=== PATIENT | male | born 1995 | race Caucasian/White ===

== ENCOUNTER → 2020-11-29 08:00 | Outpatient (CLI) | payer OTHER, SELFPAY ==
[2020-11-30 08:47] LABS: Basophils % 0.4 % (0.1-2.0); Eosinophils # 0.1 K/mm3 (0.0-0.4); Hematocrit 53.6 % (42.0-52.0); Lymphocytes # 2.1 K/mm3 (0.7-4.5); Lymphocytes % 33.7 % (10-50); Mean Corpuscular HGB Conc 31.6 g/dL (31.8-35.4); Mean Corpuscular Hemoglobin 28.2 pg (27.0-31.2); Mean Corpuscular Volume 89.2 fl (80-94); Mean Platelet Volume 9.3 fl (7.4-10.4); Monocytes # 0.3 K/mm3 (0.1-1.0); Neutrophils # 3.8 K/mm3 (1.8-7.8); Neutrophils % 59.9 % (37.0-80.0); Platelet Count 255 K/mm3 (142-424); Red Blood Count 6.01 M/mm3 (4.60-6.20); Red Cell Distribution Width 13.1 % (11.5-17.5); White Blood Count 6.3 K/mm3 (4.8-10.8)
[2020-11-30 08:50] LABS: Chloride 106 mmol/L (98-107); Potassium 4.3 mmoL/L (3.5-5.1); Sodium 143 mmol/L (136-145)
[2020-11-30 08:52] LABS: Alanine Aminotransferase 87 U/L (12-78); Aspartate Amino Transferase 50 U/L (17-59); Blood Urea Nitrogen 11 mg/dl (9-20); Estimated Glomerular Filt Rate 135 ml/min (>60); GFR (African American) 164 ML/MIN (>60)
[2020-11-30 08:53] LABS: Albumin Level 4.8 g/dl (3.5-5.0); Albumin/Globulin Ratio 1.5 (1.1-1.8); Alkaline Phosphatase 81 U/L (38-126); Anion Gap 14.3 mEq/L (5-15); Bilirubin,Total 0.8 mg/dl (0.2-1.3); Calcium 9.6 mg/dl (8.4-10.2); Carbon Dioxide 27 mmol/L (22.0-30.0); Cholesterol 106 mg/dl (140-200); Globulin 3.3 g/dL (1.3-3.2); Glucose 79 mg/dl (74-100); HDL Cholesterol 20 mg/dl (40-60); Total Protein,Serum 8.1 g/dl (6.3-8.2); Triglycerides 279 mg/dl (30-150); VLDL Cholesterol 56 mg/dL (0-40)
[2020-11-30 08:54] LABS: Chol/HDL Ratio 5.3 (1-3.5)
[2020-11-30 09:04] LABS: Direct LDL Cholesterol 48.99 mg/dL (100-129)
[2020-11-30 09:10] LABS: Hemoglobin A1C 5.5 % (4.0-6.0)
[2020-11-30 09:24] LABS: Thyroid Stimulating Hormone 1.83 uIU/mL (0.465-4.68)
== END ==
PROVIDERS: Visit Provider Family Medicine
DX: Z00.00 Encounter for general adult medical examination without abnormal findings (principal); Z76.89 Persons encountering health services in other specified circumstances
CPT/HCPCS: 80053; 80061; 83036; 84443; 85025

== ENCOUNTER 2021-02-17 16:12 | Inpatient (IN) | payer OTHER, SELFPAY ==
[2021-02-17] VITALS (16 sets, daily range): BP systolic 116–151; BP diastolic 54–94; PULSE 67–85; RESP 16–19; TEMP 36.8–37.4; O2SAT 93–100; BMI 31.4; BMI 30.9
--- NOTE | 2021-02-17 16:39 | CT_ITS ---
PROCEDURE INFORMATION: Exam: CT Abdomen And Pelvis With Contrast Exam date and time: 02/17/2021 4:39 PM Age: 25 years old Clinical indication: Abdominal pain; Localized; Right lower quadrant (rlq); Additional info: Right sided abd pain TECHNIQUE: Imaging protocol: Computed tomography of the abdomen and pelvis with contrast. Radiation optimization: All CT scans at this facility use at least one of these dose optimization techniques: automated exposure control; mA and/or kV adjustment per patient size (includes targeted exams where dose is matched to clinical indication); or iterative reconstruction. Contrast material: ISOVUE; Contrast volume: 75 ml; Contrast route: IV; COMPARISON: No relevant prior studies available. FINDINGS: Lungs: No acute findings in the visualized lower lungs. No consolidation. Liver: Prominent low-attenuation fatty change in the liver. Mild hepatomegaly. No discrete mass. There is mild periportal sparing noted in the right lobe. Gallbladder and bile ducts: The gallbladder is unremarkable. No calcified stones or biliary dilatation. Pancreas: The pancreas is normal. Spleen: Splenomegaly approximate 16.3 cm length coronal image 44. Calcified splenic granuloma. Mild perisplenic varices. Adrenal glands: The adrenal glands are normal. Kidneys and ureters: Right lower pole 1.4 cm renal cortical cystic lesion, HU density 8, with benign Bosniak 1 appearance. No suspicious mass. No hydronephrosis, hydroureter, or obstructing calcified stones. Stomach and bowel: There is no evidence of intestinal perforation or obstruction. The stomach is normal. Appendix: Findings of acute appendicitis. The appendix is distended to 1.3 cm diameter containing fluid and gas bubbles. There is slight hyperenhancement of the wall of the appendix, and there is periappendiceal soft tissue edema. Note that the appendix extends cephalad from the cecum, with tip of the appendix near the inferior tip of the right lobe of liver. See coronal series 1001, images 41-50. There is trace fluid abutting the tip of the appendix, but no organized periappendiceal abscess collection or extraluminal gas bubbles. Intraperitoneal space: There is no free intraperitoneal air. Vasculature: There is no aortic aneurysm. No portal venous gas. Lymph nodes: Minimally prominent portacaval nodes up to 2.3 x 1.1 cm series 4, image 47. Urinary bladder: Bladder is within normal limits for the degree of distension, not well filled. No calcified stones. Reproductive: Multiple prostate calcifications. Minimal prostate enlargement 4.9 x 4.1 by 4 cm. Seminal vesicles are unremarkable. Bones/joints: There is no evidence of acute fracture. Mild spinal degenerative changes. Soft tissues: There are no soft tissue masses or fluid collections. IMPRESSION: 1. Findings of acute appendicitis as detailed above. There is periappendiceal edema and trace fluid, but no organized abscess collection or extraluminal gas bubbles. 2. Fatty liver, hepatomegaly. 3. Splenomegaly, a few perisplenic varices. 4. Additional nonemergency and chronic findings as above including benign-appearing 1.4 cm Bosniak 1 cyst in the right kidney, no further imaging indicated. COMMENTS: Consistent with the [employer]'s Incidental Findings Committee white paper (J Am Trace Radiol 2018): Any incidental renal lesion less than 1 cm or classified as too small to characterize, or any incidental cystic renal lesion characterized as simple-appearing, is likely benign. No follow-up imaging is recommended for these lesions per consensus recommendations based on imaging criteria. Electronically sign
[2021-02-17 16:48] LABS: Microscopic, Urine URINE MICROSCOPIC (MICROSCOPIC)
[2021-02-17 16:58] LABS: Appearance,Urine SL CLOUDY (Clear); Bilirubin,Urine Negative (Negative); Blood, Urine Negative (Negative); Chloride 104 mmol/L (98-107); Color,Urine YELLOW (Yellow); Glucose,Urine (UA) Negative (Negative); Ketones,Urine Negative (Negative); Leukocyte Esterase,Urine Negative (Negative); Nitrate,Urine Negative (Negative); Protein,Urine 1+ (Negative); Sodium 139 mmol/L (136-145); Urobilinogen,Urine 0.2 EU/dl (0.2)
[2021-02-17 16:59] LABS: Potassium 3.9 mmoL/L (3.5-5.1)
[2021-02-17 17:01] LABS: Alanine Aminotransferase 75 U/L (12-78); Alkaline Phosphatase 69 U/L (38-126); Amylase 66 U/L (30-110); Anion Gap 15.9 mEq/L (5-15); Aspartate Amino Transferase 49 U/L (17-59); Basophils % 0.2 % (0.1-2.0); Bilirubin,Total 0.7 mg/dl (0.2-1.3); Blood Urea Nitrogen 11 mg/dl (9-20); Carbon Dioxide 23 mmol/L (22.0-30.0); Creatinine Clearance Estimated 291 mL/min (50-200); Estimated Glomerular Filt Rate 162 ml/min (>60); GFR (African American) 196 ML/MIN (>60); Hematocrit 47.3 % (42.0-52.0); Hemoglobin 15.9 g/dL (14.1-18.0); Lymphocytes # 1.1 K/mm3 (0.7-4.5); Lymphocytes % 7.4 % (10-50); Mean Corpuscular HGB Conc 33.7 g/dL (31.8-35.4); Mean Corpuscular Hemoglobin 29.2 pg (27.0-31.2); Mean Corpuscular Volume 86.8 fl (80-94); Mean Platelet Volume 7.7 fl (7.4-10.4); Monocytes # 0.5 K/mm3 (0.1-1.0); Neutrophils # 13.1 K/mm3 (1.8-7.8); Neutrophils % 89.3 % (37.0-80.0); Platelet Count 269 K/mm3 (142-424); Red Blood Count 5.44 M/mm3 (4.60-6.20); Red Cell Distribution Width 13.6 % (11.5-17.5); White Blood Count 14.7 K/mm3 (4.8-10.8)
[2021-02-17 17:02] LABS: Albumin Level 4.6 g/dl (3.5-5.0); Albumin/Globulin Ratio 1.4 (1.1-1.8); Calcium 9.1 mg/dl (8.4-10.2); Globulin 3.3 g/dL (1.3-3.2); Glucose 162 mg/dl (74-100); Lipase 38 U/L (23-300); Total Protein,Serum 7.9 g/dl (6.3-8.2)
[2021-02-17 17:12] LABS: MANUAL DIFFERENTIAL MANUAL DIFFERENTIAL (MANUAL DIFF)
[2021-02-17 17:17] LABS: Bacteria,Urine Trace /lpf; RBC,Urine Occasional #/hpf (0-3); Squamous Epithelial Cell,Urine Occasional #/hpf (0-5)
--- NOTE | 2021-02-17 17:39 | HMH.EDGENADL ---
ED Disposition Clinical Impression: Acute appendicitis Qualifiers: Acute appendicitis type: with localized peritonitis Appendicitis gangrene presence: without gangrene Appendicitis perforation presence: without perforation Appendicitis abscess presence: without abscess Qualified Code(s): K35.30 - Acute appendicitis with localized peritonitis, without perforation or gangrene Disposition: Still a Patient Condition on Discharge: Fair Referrals: Fred Snider MD [Primary Care Provider] - - Critical Care Critical Care Time: No Attestation: On 02/17/21, the high probability of a clinically significant, sudden or life threatening deterioration of the following system(s) required my full and direct attention, intervention and personal management. The time I documented below is in addition to time spent performing reported procedures but includes the following listed in this critical care notation. Medical Decision Making - Sloan Inquiry Pt receiving controlled substance: No Vital Signs: 02/17/21 16:14 Temperature 98.2 F Temperature Source Oral Pulse Rate [Right] 74 Respiratory Rate 16 Blood Pressure [Right Arm] 126/94 H Blood Pressure Mean [Right Arm] 104 Blood Pressure Source [Right Arm] Automatic Cuff Blood Pressure Position [Right Arm] Sitting 02 Sat by Pulse Oximetry 100 Oxygen Delivery Method Room Air - Lab Data Lab Results 02/17/21 16:30: Urine Color Yellow, Urine Appearance Sl cloudy, Urine pH 7.0, Ur Specific [place] 1.020, Urine Protein 1+, Urine Glucose (UA) Negative, Urine Ketones Negative, Urine Blood Negative, Urine Nitrate Negative, Urine Bilirubin Negative, Urine Urobilinogen 0.2, Ur Leukocyte Esterase Negative, Urine RBC Occasional, Urine WBC 3-5, Ur Squamous Epith Cells Occasional, Urine Bacteria Trace 02/17/21 16:30: WBC 14.7 H, RBC 5.44, Hgb 15.9, Hct 47.3, MCV 86.8, MCH 29.2, MCHC 33.7, RDW 13.6, Plt Count 269, MPV 7.7, Neut % (Auto) 89.3 H, Lymph % (Auto) 7.4 L, [place] % (Auto) 3.0, Eos % (Auto) 0.0 L, Baso % (Auto) 0.2, Neut # (Auto) 13.1 H, Lymph # (Auto) 1.1, [place] # (Auto) 0.5, Eos # (Auto) 0.0, Baso # (Auto) 0.0 02/17/21 16:30: Sodium 139, Potassium 3.9, Chloride 104, Carbon Dioxide 23, Anion Gap 15.9 H, BUN 11, Creatinine 0.60 L, Estimated Creat Clear 291, Estimated GFR 162, Est GFR ( Amer) 196, Glucose 162 H, Calcium 9.1, Total Bilirubin 0.7, AST 49, ALT 75, Alkaline Phosphatase 69, Total Protein 7.9, Albumin 4.6, Globulin 3.3 H, Albumin/Globulin Ratio 1.4, Amylase 66, Lipase 38 Result diagrams: 02/17/21 16:30 02/17/21 16:30 Orders (Tests/Meds): ED MEDICATIONS Generic Name Dose Route Start Last Admin Trade Name Freq PRN Reason Stop Dose Admin Sodium Chloride 1,000 mls @ 999 mls/hr 02/17/21 16:45 02/17/21 16:42 Sod Chlor 0.9% 1000ml Bag IV 02/17/21 17:45 999 mls/hr .Q1H1M ANDREW Administration Discontinued Medications Generic Name Dose Route Start Last Admin Trade Name Freq PRN Reason Stop Dose Admin Iopamidol 75 ml 02/17/21 17:07 02/17/21 17:08 Iopamidol-370 (76%);100ml Bottle IV 02/17/21 17:08 75 ml ONCE ONE Administration Sodium Chloride 10 ml 02/17/21 17:07 02/17/21 17:08 Sodium Chloride 0.9% 10ml Syr (Rad Only) IV 02/17/21 17:08 10 ml ONCE ONE Administration ORDERS Category Date Time Status Complete Blood Count Auto Diff Stat Lab 02/17/21 16:30 Results - CT Data CT Scan: Abdomen, Pelvis Time Received: 17:[address] Reviewed: Yes: I discussed the CT results w/the radiologist, I have viewed the radiologist's interpretation Findings Narrative: ADDENDUM Addendum created by Dinorah Quigley MD on 02/17/2021 5:39:33 PM EDT: THIS REPORT CONTAINS FINDINGS THAT MAY BE CRITICAL TO PATIENT CARE. The findings were verbally communicated via telephone conference with LUIS KOCH at 5:39 PM EDT on 02/17/2021. The findings were acknowledged and understood. Initial report created on 02/17/2021 5:33:10 PM EDT: PROCEDU
--- NOTE | 2021-02-17 17:41 | PC.NURSE ---
Pt removing clothing at this time. Advised him he could call his father to come back
--- NOTE | 2021-02-17 17:49 | PC.NURSE ---
Dr Resendiz speaking to surgeon rehabilitation attendant
--- NOTE | 2021-02-17 17:49 | PC.NURSE ---
speaking with surgeon
--- NOTE | 2021-02-17 17:50 | PC.NURSE ---
Notified house that Dr. Summers wanted to go ahead and call the surgery team in.
--- NOTE | 2021-02-17 18:11 | PC.NURSE ---
Dr. Summers at bedside
[2021-02-17 18:13] LABS: Lymphocytes % 8 % (10-50); Microcytosis 1+; Monocytes % 3 % (2-9); Neutrophils % 88 % (42-76); Platelet Estimate Normal; Total Cells Counted 100
[2021-02-17 18:17] LABS: Coronavirus 19, PCR Not Detected (NotDetected); Influenza A, PCR Not Detected (NotDetected); Influenza B, PCR Not Detected (NotDetected)
--- NOTE | 2021-02-17 18:28 | PC.NURSE ---
Jorge at bedside
--- NOTE | 2021-02-17 18:38 | PC.NURSE ---
175 call received from ED for surgery team, surgery team paged 175 roger walters crna notified [phone] lara pina rn notified [phone] anderson lorenzana notified
--- NOTE | 2021-02-17 18:48 | PC.NURSE ---
Notified admissions pt has gone to surgery
--- NOTE | 2021-02-17 18:49 | PC.NURSE ---
Pre-op checklist completed, consent completed and signed by pt's father. Pt had received pain medication. Explained procedure to patient and father. Patient and father both agreeable.
--- NOTE | 2021-02-17 19:50 | P.PN_ITS ---
[facility] Anesthesia Checklist - Patient Identification Patient Identification: Arm Band - Structural Data Admitted From: Emergency Dept Planned Operative Procedure/s: Laparoscopic Appendectomy Consent for Planned Operative Procedure(s) Verified: Yes Verified Documents: Surgical Consent, History and Physical - NPO Status Verified Time NPO: 14:00 - Additional verifications Anesthesia Reactions: No - Airway Assessment C-Spine Mobility Assessed: Yes (mp3) TMJ Mobility Assessed: Yes Dentition: Good Dentition - Neurological Assessment Level of Consciousness: Awake, Alert - Anesthesia Plan Anesthesia Risk discussed: Yes Anesthesia Plan: Verified ASA Class: II (e) Anesthesia Type: General [facility] History I have reviewed the patient's past medical history: Yes Medical History: Reports:: Anxiety *Have you ever received a pneumonia vaccine?: No *Have you received a flu vaccine this season?: Yes Anesthesia experience/problems:: nac Laterality Cases: Bilateral: Tonsillectomy Other Surgeries: Yes: Other Amputation: No Fractures: No - *Social History Smoking Status: Never smoker Alcohol Intake: never Substance Use Type: denies use *Occupational Status:: employed *Travel in the last 8 weeks: None Family Hx:: No significant family history
--- NOTE | 2021-02-17 20:29 | HMH.GSHP ---
HPI HPI: This is a 25-year-old gentleman who presented to emergency department with increasing abdominal pain. Evaluation revealed mild leukocytosis and radiographic evidence of appendicitis. The surgical service was consulted. The HPI from emergency department evaluation forwarded below. Forwarded from emergency department evaluation: General Adult HPI - General Chief complaint: Abdominal Pain Stated complaint: Right side/stomach,back pain Time Seen by Provider: 02/17/21 17:39 Mode of Arrival: Ambulatory Limitations: No Limitations Description of Symptoms (Recalled from ER Triage Doc. by RN): pt c/o right sided abd pain that goes around into his back. Advises the pain started this morning and was stabbing in nature. Denies any N/V/D. Advises he did vomit earlier but thinks its from the pain. Also denies any problems with urination - History of Present Illness HPI narrative: Generalized abdominal pain that began last night. Much more severe today and seems to be localizing to the right side around to his right flank. No fever. 1 episode of vomiting. No urinary symptoms. No prior similar pain. No previous abdominal surgeries. Pain was 02/13 earlier today, now 10/14. [facility] History Medical History: Reports:: Anxiety *Have you ever received a pneumonia vaccine?: No *Have you received a flu vaccine this season?: Yes Anesthesia experience/problems:: nac Laterality Cases: Bilateral: Tonsillectomy Other Surgeries: Yes: Other Amputation: No Fractures: No - *Social History Smoking Status: Never smoker Alcohol Intake: never Substance Use Type: denies use *Occupational Status:: employed *Travel in the last 8 weeks: None - Psychiatric History Pschychiatric History:: Reports:: Anxiety Family Hx:: No significant family history Review of Systems - Constitutional Denies chills - Eyes Denies change in vision - ENT Denies difficulty swallowing - *Cardiovascular Denies chest pain - *Respiratory Denies cough - *Gastrointestinal Reports abdominal pain - *Genitourinary Denies blood in urine - *Musculoskeletal Denies deformity - Integumentary/Breasts Denies new lesions - *Neurologic Denies abnormal movements, Denies abnormal speech, Denies confusion - Psychiatric Denies behavioral changes, Denies confusion - Endocrine Denies cold intolerance - Hematologic/Lymphatic Denies easy bleeding - Allergic/Immunologic Denies throat swelling Meds Home Medications Medication Instructions Recorded Confirmed Type Sertraline HCl [Zoloft] 100 mg PO DAILY 02/17/21 02/17/21 Rx Allergies Allergy/AdvReac Type Severity Reaction Status Date / Time clarithromycin [From Biaxin] AdvReac Verified 02/17/21 16:41 Exam Vital signs and Labs for Last 24 Hours: Temp Pulse Resp BP Pulse Ox 98.2 F 70 16 121/73 100 02/17/21 18:47 02/17/21 18:47 02/17/21 18:47 02/17/21 18:47 02/17/21 16:38 Laboratory Results - last 24 hr 02/17/21 16:30: Urine Color Yellow, Urine Appearance Sl cloudy, Urine pH 7.0, Ur Specific [place] 1.020, Urine Protein 1+, Urine Glucose (UA) Negative, Urine Ketones Negative, Urine Blood Negative, Urine Nitrate Negative, Urine Bilirubin Negative, Urine Urobilinogen 0.2, Ur Leukocyte Esterase Negative, Urine RBC Occasional, Urine WBC 3-5, Ur Squamous Epith Cells Occasional, Urine Bacteria Trace 02/17/21 16:30: WBC 14.7 H, RBC 5.44, Hgb 15.9, Hct 47.3, MCV 86.8, MCH 29.2, MCHC 33.7, RDW 13.6, Plt Count 269, MPV 7.7, Neut % (Auto) 89.3 H, Lymph % (Auto) 7.4 L, [place] % (Auto) 3.0, Eos % (Auto) 0.0 L, Baso % (Auto) 0.2, Neut # (Auto) 13.1 H, Lymph # (Auto) 1.1, [place] # (Auto) 0.5, Eos # (Auto) 0.0, Baso # (Auto) 0.0, Total Counted 100, Neutrophils % (Manual) 88 H, Lymphocytes % (Manual) 8 L, Monocytes % (Manual) 3, Basophils % (Manual) 1.0, Platelet Estimate Normal, Microcytosis 1+ 02/17/21 16:30: Sodium 139, Potassium 3.9, Chloride 104, Carbon Dioxide 23, Anion Gap 15.9 H, BUN 11
--- NOTE | 2021-02-17 20:33 | P.OP_ITS ---
Date of procedure: 02/17/21 Pre-op Diagnosis:: Appendicitis Post-op Diagnosis:: Suppurative appendicitis Procedure performed:: Laparoscopic appendectomy Surgeon:: Eric Summers MD ADVERTISING COORDINATOR:: Ramu Carbajal Anesthesia: LYNN Estimated blood loss (mL): 15 Operative findings:: Severe inflammatory changes throughout appendix with suppurative changes and early necrosis of mid/distal appendix Operative note:: After informed consent was obtained the patient was taken to the operating room and placed in the supine position. General anesthesia was induced and his abdomen was prepped and draped in a sterile fashion. After infiltration local anesthetic a supraumbilical incision was made. A Veress needle was placed in position. The abdomen was insufflated. A 12 mm optical trocar was placed in position. Under direct visualization a 5 mm trocar was placed in the suprapubic position and an additional 5 mm trocar was placed in the left lower quadrant. The appendix was essentially retrocecal along the right gutter and very difficult to visualize. Careful retraction of the small bowel and colon did eventually lead to identification of the appendix and it was carefully elevated as adhesions were taken down with a combination of harmonic ciara and blunt dissection. As the appendix was elevated it was found to be severely inflamed with suppurative changes and patchy necrosis along the mid/distal region. The mesoappendix was taken down with harmonic ciara and an Endopath 45 stapling device was then used to transect the appendix at its base. The appendix was placed in a retrieval bag and removed through the supraumbilical trocar site. The right abdomen was thoroughly irrigated. Significant cloudy fluid but no definitive evidence of abscess cavity was noted. Fascia at the supraumbilical trocar site was reapproximated with 0 Ethibond. Pneumoperitoneum was released as the remaining trocars were removed. All wounds were irrigated and skin was closed with 4-0 Monocryl in a mattress fashion to facilitate hemostasis. Dressings were applied and the patient was transferred to recovery in stable condition after extubation. Condition: stable Disposition: PACU Specimens:: Appendix Complications:: No immediate
--- NOTE | 2021-02-17 20:35 | HMH.ANESI ---
[facility] Anesthesia Record Part I Intake, IV Amount: 1,000 Estimated blood loss (mL): 10 Urine output (mL): 150 Blood Pressure: 139/74 SaO2: 95 Pulse Rate: 67 Respiratory Rate: 16 Temperature: 99.3 F Patient is:: Drowsy, Stable Stable to PACU at:: 20:30
--- NOTE | 2021-02-17 21:07 | SUR.PHASEI ---
2100 attempted to call report to eleno UREÑA, she states she will call me back in 5 minutes
--- NOTE | 2021-02-17 21:22 | PC.NURSE ---
pt arrived to floor at 2119
[2021-02-17 22:47] LABS: Microscopic,Cath URINE MICROSCOPIC (MICROSCOPIC)
[2021-02-17 23:41] LABS: Appearance,Urine/Cath SL CLOUDY (Clear); Bilirubin,Cath Negative (Negative); Blood, Urine/Cath Negative (Negative); Color,Urine/Cath YELLOW (Yellow); Glucose,Urine/Cath (UA) Negative (Negative); Ketones,Urine/Cath Negative (Negative); Leukocyte Esterase,Cath Negative (Negative); Nitrate,Cath Negative (Negative); PH,Urine/Cath 6.5 (5.0-8.5); Protein,Urine/Cath Negative (Negative); Urobilinogen,Cath 0.2 EU/dl (0.2)
[2021-02-18] VITALS (7 sets, daily range): BP systolic 103–121; BP diastolic 52–65; PULSE 63–86; RESP 16–22; TEMP 36.4–37.2; O2SAT 93–98
[2021-02-18 00:06] LABS: WBC,Urine/Cath Occasional #/hpf (0-3)
--- NOTE | 2021-02-18 06:16 | PC.NURSE ---
Patient is A&O x4. Patient has had no complaints voiced to this RN. VSS, call light within reach, will continue to monitor.
--- NOTE | 2021-02-18 06:50 | HMH.GSPN ---
Subjective Patient reports: feels better Progress Note: A&P (1) Suppurative appendicitis Status: Acute Assessment and plan: Overall, doing well status post laparoscopic appendectomy. Follow-up morning labs Continue to slowly advance diet Likely discharge home later today Exam Vital signs and Labs for Last 24 Hours: Temp Pulse Resp BP Pulse Ox 98.1 F 82 18 115/53 L 98 02/18/21 04:25 02/18/21 04:25 02/18/21 04:25 02/18/21 04:25 02/18/21 04:25 Laboratory Results - last 24 hr 02/17/21 16:30: Urine Color Yellow, Urine Appearance Sl cloudy, Urine pH 7.0, Ur Specific [place] 1.020, Urine Protein 1+, Urine Glucose (UA) Negative, Urine Ketones Negative, Urine Blood Negative, Urine Nitrate Negative, Urine Bilirubin Negative, Urine Urobilinogen 0.2, Ur Leukocyte Esterase Negative, Urine RBC Occasional, Urine WBC 3-5, Ur Squamous Epith Cells Occasional, Urine Bacteria Trace 02/17/21 16:30: WBC 14.7 H, RBC 5.44, Hgb 15.9, Hct 47.3, MCV 86.8, MCH 29.2, MCHC 33.7, RDW 13.6, Plt Count 269, MPV 7.7, Neut % (Auto) 89.3 H, Lymph % (Auto) 7.4 L, [place] % (Auto) 3.0, Eos % (Auto) 0.0 L, Baso % (Auto) 0.2, Neut # (Auto) 13.1 H, Lymph # (Auto) 1.1, [place] # (Auto) 0.5, Eos # (Auto) 0.0, Baso # (Auto) 0.0, Total Counted 100, Neutrophils % (Manual) 88 H, Lymphocytes % (Manual) 8 L, Monocytes % (Manual) 3, Basophils % (Manual) 1.0, Platelet Estimate Normal, Microcytosis 1+ 02/17/21 16:30: Sodium 139, Potassium 3.9, Chloride 104, Carbon Dioxide 23, Anion Gap 15.9 H, BUN 11, Creatinine 0.60 L, Estimated Creat Clear 291, Estimated GFR 162, Est GFR ( Amer) 196, Glucose 162 H, Calcium 9.1, Total Bilirubin 0.7, AST 49, ALT 75, Alkaline Phosphatase 69, Total Protein 7.9, Albumin 4.6, Globulin 3.3 H, Albumin/Globulin Ratio 1.4, Amylase 66, Lipase 38 02/17/21 17:55: SARS-CoV-2 (PCR) Not detected, Influenza A Untype (PCR) Not detected, Influenza Type B (PCR) Not detected 02/17/21 19:00: Urine Color Yellow, Urine Appearance Sl cloudy, Urine pH 6.5, Ur Specific [place] 1.010, Urine Protein Negative, Urine Glucose (UA) Negative, Urine Ketones Negative, Urine Blood Negative, Urine Nitrate Negative, Urine Bilirubin Negative, Urine Urobilinogen 0.2, Ur Leukocyte Esterase Negative, Urine RBC None, Urine WBC Occasional, Ur Squamous Epith Cells None, Urine Bacteria None I & O for Last 24 hours: Intake & Output 02/15/21 02/16/21 02/17/21 02/18/21 11:59 11:59 11:59 11:59 Intake Total 1060 / 1060 Output Total 450 / 450 Balance 610 / 610 Weight 241 lb 7 oz - Constitutional no acute distress - *Routine Respiratory Exam Absent: respiratory distress - *Routine Cardiovascular Exam Present: RRR - *Routine Abdominal Exam Comments: Dressings intact
[2021-02-18 07:09] LABS: Chloride 105 mmol/L (98-107); Potassium 3.9 mmoL/L (3.5-5.1); Sodium 139 mmol/L (136-145)
[2021-02-18 07:11] LABS: Basophils % 0.4 % (0.1-2.0); Eosinophils % 0.1 % (0.1-12.0); Hematocrit 40.9 % (42.0-52.0); Lymphocytes # 1.5 K/mm3 (0.7-4.5); Lymphocytes % 15.4 % (10-50); Mean Corpuscular HGB Conc 33.3 g/dL (31.8-35.4); Mean Corpuscular Hemoglobin 29.3 pg (27.0-31.2); Mean Corpuscular Volume 88.1 fl (80-94); Mean Platelet Volume 8.2 fl (7.4-10.4); Monocytes # 0.6 K/mm3 (0.1-1.0); Monocytes % 5.8 % (1.7-9.3); Neutrophils # 7.5 K/mm3 (1.8-7.8); Neutrophils % 78.3 % (37.0-80.0); Platelet Count 250 K/mm3 (142-424); Red Blood Count 4.64 M/mm3 (4.60-6.20); Red Cell Distribution Width 13.7 % (11.5-17.5); White Blood Count 9.6 K/mm3 (4.8-10.8)
[2021-02-18 07:12] LABS: Anion Gap 12.9 mEq/L (5-15); Blood Urea Nitrogen 11 mg/dl (9-20); Calcium 7.6 mg/dl (8.4-10.2); Carbon Dioxide 25 mmol/L (22.0-30.0); Creatinine Clearance Estimated 215 mL/min (50-200); Estimated Glomerular Filt Rate 116 ml/min (>60); GFR (African American) 140 ML/MIN (>60); Glucose 124 mg/dl (74-100)
[2021-02-18 07:14] LABS: Hemoglobin 13.6 g/dL (14.1-18.0)
--- NOTE | 2021-02-18 07:18 | P.CONPHA_ITS ---
[facility] Pharmacy VTE Monitoring - Patient Demographics Admission date: 02/17/21 Report Date: 02/18/21 Time: 07:18 Allergies/Adverse Reactions: Patient Allergies clarithromycin [From Biaxin] Adverse Reaction (Verified 02/17/21 16:41) Height: 1.88 m Weight: 109.514 kg Patient Problems: Current Active Problems Suppurative appendicitis (Acute) - VTE Risk Labs: VTE Related Lab Results Hgb 13.6 g/dL (14.1-18.0) L D 02/18/21 06:48 Hct 40.9 % (42.0-52.0) L 02/18/21 06:48 Plt Count 250 K/mm3 (142-424) 02/18/21 06:48 BUN 11 mg/dl (9-20) 02/18/21 06:48 Creatinine 0.80 mg/dl (0.66-1.25) D 02/18/21 06:48 Estimated Creat Clear 215 mL/min (50-200) 02/18/21 06:48 Was VTE Risk Assessment Performed: Yes VTE Score: 3 VTE Risk Level: Low Risk - Prophylaxis VTE Prophylaxis Ordered?: Yes Types of VTE Prophylaxis: IPCS Thigh High Location of Applied Device: Bilateral Lower Extremeties
--- NOTE | 2021-02-18 07:18 | HMH.PHAINT ---
MEDICATION RECONCILIATION COMPLETED ON PATIENT USING EXTERNAL FILL HISTORY FROM PHARMACY. -MARCELA ALVAREZ, YISELD
--- NOTE | 2021-02-18 13:55 | HMH.DCSUM ---
General - General Admission date:: 02/17/21 Discharge date: 02/18/21 HPI HPI: This is a 25-year-old gentleman who presented to emergency department with increasing abdominal pain. Evaluation revealed mild leukocytosis and radiographic evidence of appendicitis. The surgical service was consulted. The HPI from emergency department evaluation forwarded below. Forwarded from emergency department evaluation: General Adult HPI - General Chief complaint: Abdominal Pain Stated complaint: Right side/stomach,back pain Time Seen by Provider: 02/17/21 17:39 Mode of Arrival: Ambulatory Limitations: No Limitations Description of Symptoms (Recalled from ER Triage Doc. by RN): pt c/o right sided abd pain that goes around into his back. Advises the pain started this morning and was stabbing in nature. Denies any N/V/D. Advises he did vomit earlier but thinks its from the pain. Also denies any problems with urination Hospital Course Hospital Course: The patient underwent laparoscopic appendectomy. Please see operative report for detail. Suppurative changes with patchy necrosis noted. Postoperatively, he progressed well. He remained afebrile with stable and normal vital signs. He was deemed appropriate for discharge on the afternoon of postoperative day one. He is being discharged with a short course of Augmentin secondary to the suppurative nature of his appendicitis. Objective Vital signs: Temp Pulse Resp BP Pulse Ox 98.2 F 79 22 121/64 93 L 02/18/21 12:00 02/18/21 12:00 02/18/21 12:00 02/18/21 12:00 02/18/21 12:00 no acute distress - *Routine HEENT Exam Head: Present: normocephalic Eye: Present: EOMI, PERRL ENT: Present: mucous membranes moist - *Routine Neck Exam Present: supple - Routine Chest/Breast/Axilla Exam Chest wall: Absent: tenderness - *Routine Respiratory Exam Present: CTA bilaterally - *Routine Cardiovascular Exam Present: RRR - *Routine Abdominal Exam Present: soft, normoactive bowel sounds. Absent: tenderness - *Routine Rectal Exam Patient deferred: visual exam - *Routine Exam Patient deferred: penile exam - *Routine Extremities Exam Absent: cyanosis, clubbing, edema - Routine Back/Spine/Pelvis Exam Back/Spine: Present: full ROM - *Routine Skin Exam Present: warm. Absent: rash - *Routine Neurological Exam Present: alert - Routine Psychiatric Exam Present: normal affect - Detailed Eye Exam Eyelids: Bilateral normal inspection Results Labs on day of discharge: Labs from last 24 hours 02/18/21 02/18/21 02/17/21 06:48 06:48 19:00 WBC 9.6 D RBC 4.64 Hgb 13.6 L D Hct 40.9 L MCV 88.1 MCH 29.3 MCHC 33.3 RDW 13.7 Plt Count 250 MPV 8.2 Neut % (Auto) 78.3 Lymph % (Auto) 15.4 Sawyer % (Auto) 5.8 Eos % (Auto) 0.1 Baso % (Auto) 0.4 Neut # (Auto) 7.5 Lymph # (Auto) 1.5 Sawyer # (Auto) 0.6 Eos # (Auto) 0.0 Baso # (Auto) 0.0 Total Counted Neutrophils % (Manual) Lymphocytes % (Manual) Monocytes % (Manual) Basophils % (Manual) Platelet Estimate Microcytosis Sodium 139 Potassium 3.9 Chloride 105 Carbon Dioxide 25 Anion Gap 12.9 BUN 11 Creatinine 0.80 D Estimated Creat Clear 215 Estimated GFR 116 Est GFR ( Amer) 140 D Glucose 124 H D Calcium 7.6 L Total Bilirubin AST ALT Alkaline Phosphatase Total Protein Albumin Globulin Albumin/Globulin Ratio Amylase Lipase Urine Color Yellow Urine Appearance Sl cloudy Urine pH 6.5 Ur Specific Dahinda 1.010 Urine Protein Negative Urine Glucose (UA) Negative Urine Ketones Negative Urine Blood Negative Urine Nitrate Negative Urine Bilirubin Negative Urine Urobilinogen 0.2 Ur Leukocyte Esterase Negative Urine RBC None Urine WBC Occasional Ur Squamous Epith Cells None Urine Bacteria
--- NOTE | 2021-02-18 14:23 | HMH.PHAINT ---
DISCHARGE MEDICATION COUNSELING PROVIDED TO PATIENT. DISCUSSED AUGMENTIN AND PERCOCET PRESCRIPTIONS, HOW TO TAKE, WHAT TO EXPECT. PATIENT ENDORSED NO QUESTIONS AT THIS TIME.
== END 2021-02-18 15:25 | disposition home or self-care (01) | DRG 343 ==
LOC: ER 17:53 → SDC 18:49 → 2ND 19:33
PROVIDERS: Admitting Provider Surgery; Emergency Provider Emergency Medicine; PCP Family Medicine; Visit Provider Surgery
PROC: 0DTJ4ZZ Resection of Appendix, Percutaneous Endoscopic Approach (ICD-10-PCS; CPT 44970; principal; 2021-02-17 19:00)
DX: K35.891 Other acute appendicitis without perforation, with gangrene (principal)
CPT/HCPCS: 44970; 36415; 74177; 80048; 80053; 81001; 82150; 83690; 85007; 85025; 96365; 96375; 99284; C9803; J0330; J2405; J2543; J2710; Q9967; U0003; U0005

== ENCOUNTER → 2021-07-29 16:00 | Outpatient (CLI) | payer OTHER, SELFPAY | PROVIDERS: Visit Provider Family Medicine | DX: L03.311 Cellulitis of abdominal wall (principal) | CPT/HCPCS: 87070; 87205 ==

== ENCOUNTER → 2022-11-10 15:43 | Outpatient (CLI) | payer OTHER, SELFPAY ==
[2022-11-10 18:31] LABS: Basophils % 0.3 % (0.1-2.0); Eosinophils # 0.1 K/mm3 (0.0-0.4); Eosinophils % 2.1 % (0.1-12.0); Hemoglobin 14.9 g/dL (14.1-18.0); Lymphocytes # 2.3 K/mm3 (0.7-4.5); Lymphocytes % 36.6 % (10-50); Mean Corpuscular HGB Conc 33.2 g/dL (31.8-35.4); Mean Corpuscular Volume 84.5 fl (80-94); Mean Platelet Volume 8.1 fl (7.4-10.4); Monocytes # 0.4 K/mm3 (0.1-1.0); Neutrophils # 3.4 K/mm3 (1.8-7.8); Platelet Count 266 K/mm3 (142-424); Red Blood Count 5.33 M/mm3 (4.60-6.20); Red Cell Distribution Width 13.3 % (11.5-17.5); White Blood Count 6.2 K/mm3 (4.8-10.8)
[2022-11-10 18:53] LABS: Alanine Aminotransferase 57 U/L (12-78); Albumin Level 4.5 g/dl (3.5-5.0); Albumin/Globulin Ratio 1.6 (1.1-1.8); Alkaline Phosphatase 64 U/L (38-126); Anion Gap 13.4 mEq/L (5-15); Aspartate Amino Transferase 42 U/L (17-59); Bilirubin,Total 0.8 mg/dl (0.2-1.3); Blood Urea Nitrogen 14 mg/dl (9-20); Calcium 9.3 mg/dl (8.4-10.2); Carbon Dioxide 27 mmol/L (22.0-30.0); Chloride 106 mmol/L (98-107); Chol/HDL Ratio 5.2 (1-3.5); Cholesterol 99 mg/dl (140-200); Estimated Glomerular Filt Rate 114 ml/min (>60); GFR (African American) 138 ML/MIN (>60); Globulin 2.9 g/dL (1.3-3.2); Glucose 81 mg/dl (74-100); HDL Cholesterol 19 mg/dl (40-60); Potassium 4.4 mmoL/L (3.5-5.1); Sodium 142 mmol/L (136-145); Total Protein,Serum 7.4 g/dl (6.3-8.2); Triglycerides 310 mg/dl (30-150); VLDL Cholesterol 62 mg/dL (0-40)
[2022-11-10 19:04] LABS: Direct LDL Cholesterol 46.04 mg/dL (100-129)
== END ==
PROVIDERS: PCP Family Medicine; Visit Provider Family Medicine
DX: Z00.00 Encounter for general adult medical examination without abnormal findings (principal)
CPT/HCPCS: 80053; 80061; 85025

== ENCOUNTER 2023-05-10 11:49 | Emergency (ER) | payer OTHER, SELFPAY ==
--- NOTE | 2023-05-10 12:26 | ED_ITS ---
Discharge Plan Disposition Patient Disposition: Home, Self-Care Condition: Good Prescriptions Prescriptions: New methylprednisolone 4 mg Tablets,Dose Pack 4 mg PO DIRECTED 6 Days Qty: 21 0RF Rx Instructions: Take 1 pack as directed for 6 days [id number] [Bromfed DM] 2-30-10 mg/5 mL Syrup 5 ml PO Q6H PRN (Reason: Cough) Qty: 240 0RF amoxicillin-pot clavulanate 875-125 mg Tablet 1 tab PO Q12H Qty: 20 0RF No Action fluticasone propionate 50 mcg/actuation spray,suspension 1 spray intranasal DAILY Qty: 16 2RF Rx Instructions: administer into each nostril Referrals Follow up/Referrals: Fred Snider MD [Primary Care Provider] - See instructions Activity Restrictions/Add. Instructions Additional Instructions/Restrictions: Drink plenty of fluids. Take tylenol or ibuprofen for pain or fever. Take the medications as directed. Follow up with your regular doctor. GO TO THE ER FOR ANY WORSENING SYMPTOMS Clinical Impressions Clinical Impression: Acute bronchitis, Acute viral syndrome Stand Alone Forms Stand Alone Forms: Work/School Release Instructions Patient Instructions: DI for Acute Bronchitis Discharge ED Provider: Juan C Montes [facility] General Stated complaint: chest pain, stomach pain Time Seen by Provider: 05/10/23 12:26 History of Present Illness Provider Complaint: He states that for the past 5 days he has had cough, congestion, malaise, sore throat and malaise. Related Data Previous Rx's Medication Instructions Recorded fluticasone propionate 50 1 spray intranasal DAILY #16 grams 04/12/23 mcg/actuation nasal spray,suspension amoxicillin 875 mg-potassium 1 tab PO Q12H #20 tabs 05/10/23 clavulanate 125 mg tablet eqegzdbfxktqnfr-ljjssdpndbndywv-QD 5 ml PO Q6H PRN Cough #240 mL 05/10/23 2 mg-30 mg-10 mg/5 mL oral syrup (Bromfed DM) methylprednisolone 4 mg tablets in 4 mg PO DIRECTED 6 days #21 tabs 05/10/23 a dose pack Allergies Allergy/AdvReac Type Severity Reaction Status Date / Time clarithromycin [From Biaxin] AdvReac Verified 05/10/23 12:50 [facility] Disclaimer: The information contained in this section may have been updated after the patient was seen, as this information can be updated by other users. Social History Smoking Status: Never smoker alcohol intake: never substance use type: denies use current occupational status: employed Travel in the last 8 weeks: None household members: family housing: house current occupation: [employer] caffeine: Yes ROS Obtained: Yes All systems reviewed & no additional complaints except as documented Constitutional Constitutional: Reports chills and Reports fever(s) Eyes Eyes: Denies eye discharge ENT Ears, Nose, Mouth, and Throat: Reports as per HPI Cardiovascular Cardiovascular: Denies chest pain Respiratory Respiratory: Denies chest congestion and Reports cough Gastrointestinal Gastrointestingal: Reports nausea; Denies abdominal pain, constipation, cramping, diarrhea or vomiting Musculoskeletal Musculoskeletal: Denies arthralgias Integumentary/Breasts Skin/Breast: Denies rash Neurologic Neurologic: Denies paresthesias Physical Exam General General appearance: alert and in no apparent distress Head Head exam: atraumatic, normocephalic and normal inspection Eye Eye exam: Present normal appearance, PERRL and EOMI ENT ENT exam: Present mucous membranes moist and normal external ear exam Expanded ENT Exam TM/Canal exam: Bilateral TM: erythema and bulging Nose exam: Absent sinus tenderness Mouth exam: Present normal external inspection; Absent drooling Teeth exam: Present normal inspection Throat exam: Present tonsillar erythema, tonsillomegaly and tonsillar exudate Neck Neck exam: Present normal inspection, full ROM and trachea midline; Absent tenderness, meningismus or lymphadenopathy Chest Chest inspection: Present normal inspection and symmetric chest wall rise; Absent tenderness Respiratory Respiratory exam: Present normal lung sounds bilaterally; Absent respiratory distress, wheezes or stridor Cardiovascular Cardiovascular exam: Present regular rate and normal rhythm; Absent systolic murmur or diastolic murmur Abdominal Exam Abdominal exam: Present soft and normal bowel sounds; Absent distention, tenderness, guarding, rebound or rigidity Extremities Exam Extremities exam: Present normal inspection and normal capillary refill; Absent calf tenderness Back Exam Back exam: Present normal inspection and full ROM; Absent tenderness, CVA tenderness (R) or CVA tenderness (L) Neurological Exam Neurological exam: Present alert, oriented X3 and CN II-XII intact Psychiatric Psychiatric exam: Present normal affect and normal mood Skin Skin exam: Present warm, dry, intact and normal color Medical Decision Making Medical Records Medical records reviewed: No I reviewed the patient's medical records. [place] Inquiry Pt receiving controlled substance: No Lab Data Lab results reviewed: Yes I reviewed the patient's lab results.
[2023-05-10 12:30] VITALS: BP 128/77; PULSE 87; RESP 18; TEMP 36.6; O2SAT 96; BMI 30.8
[2023-05-10 12:54] LABS: UTC Influenza A Antigen Negative (Negative)
[2023-05-10 12:55] LABS: UTC Influenza B Antigen Negative (Negative)
[2023-05-10 13:17] VITALS: BP 128/77; PULSE 87; RESP 18; TEMP 36.6; O2SAT 96
== END 2023-05-10 13:17 | disposition home or self-care (01) ==
PROVIDERS: Emergency Provider Nurse Practitioner Family; PCP Family Medicine
DX: J20.9 Acute bronchitis, unspecified (principal); B34.9 Viral infection, unspecified; R05.9 Cough, unspecified; R07.9 Chest pain, unspecified; R10.9 Unspecified abdominal pain; R53.81 Other malaise
CPT/HCPCS: 87635; 87804; 99204; 99212; G0463

== ENCOUNTER → 2023-07-03 16:05 | Outpatient (CLI) | payer OTHER, SELFPAY | LOC: SL 16:06 | PROVIDERS: PCP Family Medicine; Visit Provider Family Medicine | DX: R06.83 Snoring (principal); G47.36 Sleep related hypoventilation in conditions classified elsewhere | CPT/HCPCS: G0399 ==

== ENCOUNTER → 2023-10-11 20:34 | Outpatient (CLI) | payer OTHER, SELFPAY | LOC: SL 20:36 | PROVIDERS: PCP Family Medicine; Visit Provider Specialist | DX: R06.83 Snoring (principal); R53.83 Other fatigue; R40.0 Somnolence | CPT/HCPCS: 95810 ==

== ENCOUNTER 2023-10-23 15:27 | Outpatient (CLI) | payer OTHER, SELFPAY ==
--- NOTE | 2023-10-23 15:27 | CT_ITS ---
FINAL REPORT TECHNIQUE: Multiple axial CT sections were performed through the face without IV contrast. Coronal and sagittal reconstruction images were performed. This study was performed with techniques to keep radiation doses as low as reasonably achievable (ALARA). Individualized dose reduction techniques using automated exposure control or adjustment of mA and/or kV according to the patient's size were employed. CLINICAL HISTORY: sinusitis COMPARISON: None FINDINGS: Facial Bones: No displaced facial bone fractures. Paranasal sinuses, nasal passages and mastoid air cells: There is mucosal thickening in the ethmoid and maxillary sinuses bilaterally, more prominent on the left than on the right. The mucosal thickening in the inferior maxillary sinuses on the left measures up to 9 mm. The frontal and sphenoid sinuses are clear. Bony orbits and optic globes: No orbital fractures. The optic globes are unremarkable and symmetric. Soft tissues: There is ostiomeatal narrowing secondary to mucosal thickening. There is minimal nasal septal deviation to the right, as well as bilateral alexandr bullosa in the middle turbinates. IMPRESSION: Changes of chronic sinusitis as described in the maxillary and ethmoid sinuses as described. Reviewed, Interpreted and Dictated by Ivelisse Lagos MD Transcribed by Koki Zhao Authenticated and [facility]
== END 2023-10-23 23:59 | disposition home or self-care (01) ==
LOC: RAD 15:27
PROVIDERS: PCP Family Medicine; Visit Provider Student in an Organized Health Care Education/Training Program
DX: J32.9 Chronic sinusitis, unspecified (principal)
CPT/HCPCS: 70486

== ENCOUNTER 2024-03-25 16:10 | Outpatient (CLI) | payer OTHER, SELFPAY ==
[2024-03-25 18:38] LABS: Influenza A, PCR Not Detected (NotDetected); Influenza B, PCR Not Detected (NotDetected)
[2024-03-25 18:54] LABS: Basophils # 0.1 K/mm3 (0-0.2); Basophils % 0.9 % (0.1-2.0); Eosinophils # 0.2 K/mm3 (0.0-0.4); Eosinophils % 2.6 % (0.1-12.0); Hematocrit 44.2 % (42.0-52.0); Hemoglobin 15.5 g/dL (14.1-18.0); Lymphocytes # 2.2 K/mm3 (0.7-4.5); Mean Corpuscular HGB Conc 35.1 g/dL (31.8-35.4); Mean Corpuscular Hemoglobin 30.1 pg (27.0-31.2); Mean Corpuscular Volume 85.6 fl (80-94); Mean Platelet Volume 7.6 fl (7.4-10.4); Monocytes # 0.3 K/mm3 (0.1-1.0); Monocytes % 4.5 % (1.7-9.3); Neutrophils # 3.9 K/mm3 (1.8-7.8); Platelet Count 244 K/mm3 (142-424); Red Blood Count 5.16 M/mm3 (4.60-6.20); Red Cell Distribution Width 13.8 % (11.5-17.5); White Blood Count 6.5 K/mm3 (4.8-10.8)
[2024-03-25 22:12] LABS: Coronavirus 19, PCR Detected (NotDetected)
== END 2024-03-25 23:59 | disposition home or self-care (01) ==
LOC: LAB.DROPOF 03-26 13:01
PROVIDERS: PCP Family Medicine; Visit Provider Family Medicine
DX: J06.9 Acute upper respiratory infection, unspecified (principal)
CPT/HCPCS: 85025; 87636

== ENCOUNTER 2024-11-03 10:31 | Outpatient (CLI) | payer OTHER, SELFPAY ==
[2024-11-03 19:05] LABS: Basophils % 0.4 % (0.1-2.0); Eosinophils # 0.1 Kmm3 (0.0-0.4); Eosinophils % 2.2 % (0.1-12.0); Hematocrit 47.6 % (42.0-52.0); Hemoglobin 15.5 g/dL (14.1-18.0); Immature Granulocytes # 0.01 10^3uL; Immature Granulocytes % 0.2 %; Lymphocytes # 1.8 K/mm3 (0.7-4.5); Mean Corpuscular HGB Conc 32.6 g/dL (31.8-35.4); Mean Corpuscular Hemoglobin 28.9 pg (27.0-31.2); Mean Corpuscular Volume 88.6 fl (80-94); Mean Platelet Volume 10.3 fl (7.4-10.4); Monocytes # 0.5 K/mm3 (0.1-1.0); Monocytes % 9.2 % (1.7-9.3); Neutrophils # 2.7 K/mm3 (1.8-7.8); Nucleated Red Blood Cells # 0 10^3/uL; Nucleated Red Blood Cells % 0 %; Platelet Count 223 K/mm3 (142-424); Red Blood Count 5.37 M/mm3 (4.60-6.20); Red Cell Distribution Width 12.7 % (11.5-17.5); Red Cell Distribution Width-SD 40.9 fL; White Blood Count 5.1 K/mm3 (4.8-10.8)
[2024-11-03 19:52] LABS: Albumin Level 4.5 g/dl (3.5-5.0); Chloride 104 mmol/L (98-107)
[2024-11-03 19:53] LABS: Sodium 141 mmol/L (136-145)
[2024-11-03 19:55] LABS: Alanine Aminotransferase 69 U/L (12-78); Albumin/Globulin Ratio 1.7 (1.1-1.8); Alkaline Phosphatase 83 U/L (38-126); Aspartate Amino Transferase 42 U/L (17-59); Bilirubin,Total 0.7 mg/dl (0.2-1.3); Blood Urea Nitrogen 13 mg/dl (9-20); Carbon Dioxide 25 mmol/L (22.0-30.0); Estimated Glomerular Filt Rate 132 ml/min (>60); GFR (African American) 159 ML/MIN (>60); Globulin 2.7 g/dL (1.3-3.2); Total Protein,Serum 7.2 g/dl (6.3-8.2)
[2024-11-03 19:56] LABS: Calcium 8.6 mg/dl (8.4-10.2); Chol/HDL Ratio 5.2 (1-3.5); Cholesterol 83 mg/dl (140-200); Glucose 132 mg/dl (74-100); HDL Cholesterol 16 mg/dl (40-60); Triglycerides 345 mg/dl (30-150); VLDL Cholesterol 69 mg/dL (0-40)
[2024-11-03 20:17] LABS: Direct LDL Cholesterol < 30.00 mg/dL (100-129); Hemoglobin A1C 7.5 % (4.0-6.0)
[2024-11-03 20:35] LABS: HIV Combo NEGATIVE (Negative)
[2024-11-03 20:38] LABS: Thyroid Stimulating Hormone 1.05 uIU/mL (0.465-4.68)
[2024-11-03 20:46] LABS: Hepatitis C Ab Qual. W/ RFX NEGATIVE (Negative)
[2024-11-05 05:09] LABS: Hepatitis B Surface Antigen Negative (Negative)
--- OUTSIDE RECORDS SUMMARY | 2024-11-05 10:38 | XMS_ITS | Clinical Summary ---
Author Organization [id number] Address [address], [address] [place] [address] Care Team Providers Care Celebrity Chef Entrepreneur Media Personality Name Role Phone Fred Snider MD Primary Care Provider [phone] Allergies Active Allergy Reactions Criticality Noted Date Comments Clarithromycin Hives 04/27/2010 Medications No known medications Surgical History Surgery Date Site/Laterality Comments TONSILLECTOMY Family History Medical History Relation Name Comments Anesth Problems Mother nausea Relation Name Status Comments Mother Social History Tobacco Use Types Packs/Day Years Used Date Smoking Tobacco: Never Alcohol Use Standard Drinks/Week Comments No 0 (1 standard drink = 0.6 oz pur e alcohol) Sex and Gender Information Value Date Recorded Sex Assigned at Not on file Legal Sex Male 1:02 AM EDT Gender Identity Not on file Sexual Orientation Not on file Obstetrics History Last Filed Vital Signs Vital Sign Reading Time Taken Comments Blood Pressure 128/79 01/09/2016 2:11 PM EDT Pulse 69 01/09/2016 2:11 PM EDT Temperature 36.3 C (97.4 F) 01/09/2016 2:11 PM EDT Respiratory Rate 16 04/27/2010 4:46 PM EST Oxygen Saturation 96% 01/09/2016 2:11 PM EDT Inhaled Oxygen Concentration - - Weight 96.1 kg (211 lb 12.8 oz) 01/09/2016 2:11 PM EDT Height 190.5 cm (6' 3 ) 04/27/2010 11:1 3 AM EST Body Mass Index - - Plan of Treatment Health Maintenance Due Date Last Done Comments Annual Wellness Exam 1996 DTaP/TDaP/Td (1 - Tdap) 2012 Hepatitis B Vaccine (1 of 3 - 19+ 3-dose series) 2012 COVID-19 Vaccine (1 - 2023-2 5 season) 2024 Influenza Vaccine (Season Ended) 2025 Meningococcal B Vaccine Aged Out No l onger eligible based on patient's age to complete this topic Pneumococcal Vaccine 0-49 Aged Out No longer eligible based on patient's age to complete this topic Insurance [facility] [id number] Care Teams Celebrity Chef Entrepreneur Media Personality Relationship Specialty Start Date End Date Fred Snider MD PCP - General 04/12/10
== END 2024-11-03 23:59 | disposition home or self-care (01) ==
LOC: LAB.DROPOF 11-05 10:31
PROVIDERS: PCP Nurse Practitioner; Visit Provider Nurse Practitioner
DX: B35.9 Dermatophytosis, unspecified (principal); Z11.59 Encounter for screening for other viral diseases; Z13.1 Encounter for screening for diabetes mellitus; Z13.29 Encounter for screening for other suspected endocrine disorder; Z13.220 Encounter for screening for lipoid disorders; Z13.0 Encounter for screening for diseases of the blood and blood-forming organs and certain disorders involving the immune mechanism
CPT/HCPCS: 80053; 80061; 80074; 83036; 84443; 85025; 87340; 87389

== ENCOUNTER 2025-03-02 12:39 | Emergency (ER) | payer OTHER, SELFPAY ==
[2025-03-02 12:44] VITALS: BP 172/96; PULSE 85; RESP 16; TEMP 36.6; O2SAT 98; BMI 31.4
--- OUTSIDE RECORDS SUMMARY | 2025-03-02 13:00 | XMS_ITS | Clinical Summary ---
Author Organization [facility] Address [address], [address] [place] [address] Care Team Providers Care Millroom Supervisor Name Role Phone Fred Snider MD Primary Care Provider [phone] Allergies Active Allergy Reactions Criticality Noted Date [...] on file Sexual Orientation Not on file Last Filed Vital Signs Vital Sign Reading [...] 3-dose series) 2012 COVID-19 Vaccine (1 - 2024-2 6 season) 2025 Influenza Vaccine (#1) 2025 Meningococcal B Vaccine Aged Out No l onger eligible based on patient's age to complete this topic Pneumococcal Vaccine 0-49 Aged Out No longer eligible based on patient's age to complete this topic Insurance [facility] [id number] Care Teams Millroom Supervisor Relationship Specialty Start Date End Date Fred Snider MD PCP - General 04/12/10
[2025-03-02 13:08] LABS: Microscopic, Urine URINE MICROSCOPIC (MICROSCOPIC)
[2025-03-02 13:10] LABS: Bilirubin,Urine Negative (Negative); Color,Urine YELLOW (Yellow); Glucose,Urine (UA) 2+ (Negative); Ketones,Urine TRACE (Negative); Leukocyte Esterase,Urine Negative (Negative); PH,Urine 7.0 (5.0-8.5); Protein,Urine TRACE (Negative); Specific Gravity, Urine 1.015 (1.005-1.030); Urobilinogen,Urine 2.0 EU/dl (0.2)
--- NOTE | 2025-03-02 13:13 | ED_ITS ---
<Statement entered by James Quiros MD - 03/02/25 20:26> I was consulted by the [facility], and we discussed the complexity of the problems being addressed. I approve the treatment and management plan for this patient's care in the emergency department, thus performing a substantive portion of the medical decision making. James Quiros MD Discharge Plan Disposition Patient Disposition: Home, Self-Care Condition: Good Prescriptions Prescriptions: New ciprofloxacin HCl [Cipro] 500 mg tablet 500 mg PO BID Qty: 20 0RF metronidazole 500 mg tablet 500 mg PO Q8H 7 Days Qty: 21 0RF No Action ketoconazole 2 % shampoo 1 applic topical Q3D 14 Days Qty: 120 0RF hydroxyzine HCl 25 mg tablet 25 - 50 mg PO Q6H PRN (Reason: itching) Qty: 90 0RF cefdinir 300 mg capsule 300 mg PO BID Qty: 20 0RF ciprofloxacin-dexamethasone 0.3-0.1 % drops,suspension 4 drp otic (ear) BID 7 Days Qty: 7.5 0RF (DME) Blood Glucose Test Strip See Rx Instructions .MEDSUPPLY Qty: 150 3RF Rx Instructions: As directed (DME) lancets Misc See Rx Instructions .MEDSUPPLY Qty: 200 3RF Rx Instructions: As directed (DME) blood-glucose meter [Blood Glucose Monitoring] Kit See Rx Instructions .MEDSUPPLY Qty: 1 0RF Rx Instructions: As directed metformin [Glucophage XR] 500 mg tablet extended release 24 hr 500 mg PO DAILY Qty: 30 2RF Referrals Follow up/Referrals: Laura Mallory APRN [Primary Care Provider, Family Practice] - See instructions Shad Smith II, MD [Staff Physician, Gastroenterology] - See instructions Activity Restrictions/Add. Instructions Additional Instructions/Restrictions: You were evaluated on an emergency basis. It is very important that you follow- up with your primary care provider and any specialist who we discussed within the next 2 days in order to better assess your health more comprehensively. For example, incidental findings on imaging or laboratory results that were performed today may be discovered, which do not require immediate medical care, but may impact your health in the future. If your symptoms worsen or persist, please return to the emergency department immediately for reassessment. Take all medications as prescribed. In queue for allowing me to participate in your health care, and I hope you feel better soon. Clinical Impressions Clinical Impression: Acute proctitis Instructions Patient Instructions: DI for Acute Abdominal Pain Print Language Print Language: German Discharge ED Provider: James Quiros General Adult HPI General Chief complaint: Abdominal Pain Stated complaint: abd pain, blood in stool Time Seen by Provider: 03/02/25 13:13 Mode of Arrival: Ambulatory Source of Information: Patient Description of Symptoms (Recalled from ER Triage Doc. by RN): Pt states he started having N/V and abdominal pain this past weekend. He stated he had a fever on sunday that went away, but was still having loose stools and blood in his stool. Pt presents today with c/o abdominal and rectal pain and bloody stool. Pt also states he is having periods of dysuria since the start of his abdominal pain. History of Present Illness HPI narrative: 29-year-old male presents to the emergency department with complaints of diffuse abdominal pain with loose stools. He states he has had the pain for the past couple days. He reports that he started having blood in his stools yesterday. He reports his bowel movement was normal this morning. He denies fevers. He states that sometimes the pain appears to be in his rectal region however sometimes it is within his abdomen. Related Data Previous Rx's ?Medication ?Instructions ?Recorded cefdinir 300 mg capsule 300 mg PO BID #20 caps 11/03 ciprofloxacin 0.3 %-dexamethasone 4 drp otic (ear) BID 7 days #7.5 mL 11/03/24 0.1 % ear drops,suspension hydroxyzine HCl 25 mg tablet 25 - 50 mg (1 - 2 x 25 mg ) PO Q6H 11/03/24 PRN itching #90 tabs ketoconazole 2 % shampoo 1 applic topical Q3D 14 days #120 11/03/24 mL blood sugar diagnostic (Blood #150 ea 11/04/24 Glucose Test strips) blood-glucose meter (Blood Glucose #1 ea 11/04/24 Monitoring kit) lancets #200 ea 11/04/24 metformin 500 mg tablet,extended 500 mg PO DAILY #30 t abs 11/04/24 release 24 hr (Glucophage XR) ciprofloxacin HCl 500 mg tablet 500 mg PO BID #20 tabs 03/02/25 (Cipro) metronidazole 500 mg tablet 500 mg PO Q8H 7 days #21 t abs 03/02/25 Allergies Allergy/AdvReac Type Severity Reaction Status Date / Time clarithromycin (From Biaxin) AdvReac Verified 11/03/24 08:30 [facility] Dis[facility]: The information contained in this section may have been updated after the patient was seen, as this information can be updated by other users. Medical History (Updated 03/02/25 @ 15:52 by Meaghan Manjarrez) Obesity Type 2 diabetes mellitus without complications Rash URI, acute CAROLINE (obstructive sleep apnea) Snoring Anxiety Surgical History History of tonsillectomy and adenoidectomy History of appendectomy Family History Other Alcoholism Bleeding disorder Cancer Coronary artery disease Diabetes Heart attack Hyperlipidemia Hypertension Stroke Thyroid disorder Social History Smoking Status: Never smoker alcohol intake: current alcohol intake frequency: holidays/special occasions only substance use type: denies use current occupational status: employed Travel in the last 8 weeks?: [place] household members: family housing: house marital status: single number of children: 1 current occupation: [employer] caffeine: Yes Have you lived/traveled outside US in past 30 days?: No Contact w/someone who lives/traveled outside US past 30 days?: No Exposure to someone with infectious disease in past 14 days?: No Do you have a fever (greater than 100.4 F or 38 C)?: No Have you tested positive for COVID-19?: No Exposed to someone with COVID-19 in past 14 days?: No Do you have a sore throat?: No Do you have a cough?: No Do you have any weakness?: No Do you have any diarrhea?: No Are you experiencing any unusual bleeding?: No Do you have any muscle aches/pain?: No Do you have any abdominal pain?: No Are you experiencing loss of taste or smell?: No Other Medical History Have you received the Flu Vaccine for this season: No Have you received the Pneumonia Vaccine: No ROS Obtained: Yes other Gastrointestinal Gastrointestingal: Reports abdominal pain, change in stool character and other (Rectal bleeding) Physical Exam Narrative Physical exam: General: Awake, aware, in no acute distress HEENT: Normocephalic, no evidence of trauma CV: RRR, no murmurs, rubs, or gallops Pulm: CTA bilaterally with no rhonchi, rales, wheezes ABD: Abdomen is soft with diffuse tenderness on palpation. Patient with hypoactive bowel sounds. No CVA tenderness noted Psych, appropriate mood and affect General General appearance: alert Respiratory Respiratory exam: Present normal lung sounds bilaterally Cardiovascular Cardiovascular exam: Present regular rate Neurological Exam Neurological exam: Present alert Medical Decision Making Medical Records Screening: Per USPSTF and CDC recommendations, given the prevalence of disease in our region, it is our hospital?s policy to screen for HIV and viral Hepatitis for all patients aged 18 and over and those with ongoing risk factors. [place] Inquiry Pt receiving controlled substance: No Vital Signs: 03/02/25 12:44 03/02/25 14:57 Temperature 97.8 F 98.5 F Temperature Source Temporal Artery Scan Temporal Artery Scan Pulse Rate 80 Pulse Rate [Right] 85 Respiratory Rate 16 18 Blood Pressure 144/78 H Blood Pressure [Right Arm] 172/96 H Blood Pressure Mean [Right Arm] 121 Blood Pressure Source Automatic Cuff Blood Pressure Source [Right Arm] Automatic Cuff Blood Pressure Position Sitting Blood Pressure Position [Right Arm] Sitting 02 Sat by Pulse Oximetry 98 96 Oxygen Delivery Method Room Air Room Air Lab Data Lab Results 03/02/25 13:02: Urine Color Yellow, Urine Appearance Clear, Urine pH 7.0, Ur Specific [place] 1.015, Urine Protein Trace, Urine Glucose (UA) 2+, Urine Ketones Trace, Urine Blood Negative, Urine Nitrate Negative, Urine Bilirubin Negative, Urine Urobilinogen 2.0, Ur Leukocyte Esterase Negative, Urine RBC None, Urine WBC None, Ur Squamous Epith Cells None, Urine Bacteria None 03/02/25 13:07: WBC 6.3, RBC 4.99, Hgb 14.4, Hct 42.7, MCV 85.6, MCH 28.9, MCHC 33.7, RDW 12.1, Plt Count 261, MPV 9.5, Neut % (Auto) 55.0, Lymph % (Auto) 36.3, [place] % (Auto) 6.1, Eos % (Auto) 1.6, Baso % (Auto) 0.5, Neut # (Auto) 3.5, Lymph # (Auto) 2.3, [place] # (Auto) 0.4, Eos # (Auto) 0.1, Baso # (Auto) 0.0, PT 11.3, INR 1.02, Sodium 135 L, Potassium 4.0, Chloride 103, Carbon Dioxide 26, Anion Gap 10.0, BUN 13, Creatinine 0.70, Estimated Creat Clear 240, Estimated GFR 132, Est GFR ( Amer) 159, Glucose 115 H, Lactate 0.8, Calcium 8.4, Total Bilirubin 0.9, AST 67 H, ALT 82 H, Alkaline Phosphatase 72, Total Protein 7.8, A lbumin 3.3 L, Globulin 4.5 H, Albumin/Globulin Ratio 0.7 L, Lipase 74 03/02/25 13:19: Stool Occult Blood Positive A 03/02/25 13:07 03/02/25 13:07 Orders (Tests/Meds): ED MEDICATIONS Discontinued Medications Generic Name Dose Route Start Last Admin Trade Name Freq PRN Reason Stop Dose Admin Sodium Chloride 1,000 mls @ 999 mls/hr 03/02/25 13:25 03/02/25 13:43 Sod Chlor 0.9% 1000ml Bag IV 03/02/25 14:25 999 mls/hr .Q1H1M ONE Administration Iopamidol 75 ml 03/02/25 14:06 03/02/25 14:06 Iopamidol-370 (76%);100ml Bottle IV 03/02/25 14:07 75 ml ONCE ONE Administration Sodium Chloride 10 ml 03/02/25 14:06 03/02/25 14:06 Sodium Chloride 0.9% 10ml Syr (Rad Only) IV 03/02/25 14:07 10 ml ONCE ONE Administration ORDERS Category Date Time Status CT abdomen pelvis w con Stat Cat Scan 03/02/25 13:25 Completed Complete Blood Count Auto Diff Stat Lab 03/02/25 13:07 Completed Comprehensive Metabolic Panel Stat Lab 03/02/25 13:07 Completed Lactic Acid Stat Lab 03/02/25 13:07 Completed Lipase Stat Lab 03/02/25 13:07 Completed Occult Blood,Stool Stat Lab 03/02/25 13:19 Completed Prothrombin Time INR Stat Lab 03/02/25 13:07 Completed Urinalysis and Microscopic Stat Lab 03/02/25 13:02 Completed Medical Decision Narrative: Initial impression of presenting illness: 29-year-old male presents to the emergency department with complaints of diffuse abdominal pain with bright red blood per rectum he states he has had some soft stools. He also reports sometimes the pain is in his rectum and sometimes it is in his abdomen. He reports he had a normal bowel movement today. He denies fevers. Differential diagnosis includes but is not limited to: Constipation, hemorrhoid, anal fissure, diverticulitis Patient arrives hemodynamically stable, afebrile, without respiratory distress with vital signs interpreted by myself. Initial physical exam reveals diffuse tenderness to palpation of abdomen with hypoactive bowel sounds. Rest of exam is unremarkable Initial diagnostic plan: Rectal exam, laboratory studies including CT of abdomen pelvis with IV contrast, normal saline bolus Results from initial plan were reviewed and interpreted by myself, pertinent positives include: Laboratory studies were nonactionable including urinalysis. CT of abdomen and pelvis with IV contrast that shows abnormality coastal thickening of the rectum with extensive perirectal and inguinal adenopathy which may be infectious, inflammatory, or neoplastic. Rectal exam completed with RN as tuyere fitter. No obvious hemorrhoids were present. Patient does report tenderness to palpation of his rectum. Hemoccult was positive. Interventions in the ED: Patient was given normal saline bolus for hydration. Patient was made aware of the results and the findings, upon reevaluation patient has remained stable throughout stay, symptoms remained stable. Consultation/discussion with other physicians: Spoke with GI provider Dr. Smith regarding patient's presenting complaint and workup findings. He recommended discharging patient with Cipro and Flagyl for treatment proctitis. He also stated that patient needed to have a colonoscopy. I have sent Dr. Smith a message via the [employer] computer system to facilitate patient getting his for this follow-up. Disposition: Reviewed findings today's workup with patient and informed him that we will treat for proctitis with Cipro and Flagyl per Dr. Smith recommendations. I also informed him that he recommended patient get a colonoscopy. I advised him that he will likely receive a phone call from Dr. Smith office in the next couple of days to schedule this appointment. Advised him if he does not hear from them by the end of the week to contact their office directly to schedule close outpatient follow-up. Instructed him to return to the emergency department with any new or worsening symptoms. Patient is agreeable to plan of care. Patient made aware of findings and had a detailed discussion with symptomatic care and return precautions, patient voiced understanding. Critical Care Critical Care Time Critical Care Time: No
--- NOTE | 2025-03-02 13:25 | CT_ITS ---
FINAL REPORT TECHNIQUE: After the administration of intravenous contrast, axial images were obtained through the abdomen and pelvis by computed tomography. This study was performed with technique to keep radiation doses as low as reasonably achievable, (ALARA). Individualized dose reduction techniques using automated exposure control or adjustment of the MA and/or KV according to the patient's size were employed. CLINICAL HISTORY: abd pain x1 week rectal pain over the weekend COMPARISON: 02/17/2021 FINDINGS: Abdomen: The lung bases are clear. There is marked fatty infiltration of the liver. Gallbladder is present. The spleen is enlarged measuring 18 cm in craniocaudad dimension. The adrenals are normal. The pancreas is unremarkable. The kidneys enhance appropriately. The aorta is normal in caliber. There is no free fluid or adenopathy. Pelvis: The appendix is not identified. There is abnormal mucosal thickening of the inferior rectum measuring up to 18 mm with mild perirectal inflammation. Multiple perirectal lymph nodes are seen measuring up to 14 mm in greatest dimension on series 3, images 101 and 109. There are approximately 20 abnormally enlarged perirectal lymph nodes. There is also bilateral inguinal adenopathy measuring up to 2 cm. The urinary bladder is unremarkable. There is no free fluid. IMPRESSION: Abnormal mucosal thickening of the rectum with extensive perirectal and inguinal adenopathy which may be infectious, inflammatory or neoplastic. Reviewed, Interpreted and Dictated by Nilesh Wong MD Transcribed by Lizeth Zamora Authenticated and . [facility]
[2025-03-02 13:28] LABS: Albumin Level 3.3 g/dl (3.5-5.0); Chloride 103 mmol/L (98-107); Potassium 4.0 mmoL/L (3.5-5.1); Sodium 135 mmol/L (136-145)
[2025-03-02 13:29] LABS: Hematocrit 42.7 % (42.0-52.0); Hemoglobin 14.4 g/dL (14.1-18.0); Immature Granulocytes % 0.5 %; Mean Corpuscular HGB Conc 33.7 g/dL (31.8-35.4); Mean Corpuscular Hemoglobin 28.9 pg (27.0-31.2); Mean Corpuscular Volume 85.6 fl (80-94); Nucleated Red Blood Cells % 0 %; Platelet Count 261 K/mm3 (142-424); Red Blood Count 4.99 M/mm3 (4.60-6.20); Red Cell Distribution Width-SD 37.6 fL; White Blood Count 6.3 K/mm3 (4.8-10.8)
[2025-03-02 13:31] LABS: Alanine Aminotransferase 82 U/L (12-78); Albumin/Globulin Ratio 0.7 (1.1-1.8); Alkaline Phosphatase 72 U/L (38-126); Anion Gap 10.0 mEq/L (5-15); Aspartate Amino Transferase 67 U/L (17-59); Bilirubin,Total 0.9 mg/dl (0.2-1.3); Blood Urea Nitrogen 13 mg/dl (9-20); Calcium 8.4 mg/dl (8.4-10.2); Carbon Dioxide 26 mmol/L (22.0-30.0); Creatinine Clearance Estimated 240 mL/min (50-200); Creatinine,Serum 0.70 mg/dl (0.66-1.25); Estimated Glomerular Filt Rate 132 ml/min (>60); GFR (African American) 159 ML/MIN (>60); Globulin 4.5 g/dL (1.3-3.2); Glucose 115 mg/dl (74-100); Lipase 74 U/L (23-300); Total Protein,Serum 7.8 g/dl (6.3-8.2)
[2025-03-02 13:34] LABS: INR 1.02 (0.9-1.1); Prothrombin Time 11.3 seconds (10.1-12.5)
[2025-03-02] MEDS: 0.9 % SODIUM CHLORIDE 1000ML 1,000 ML 999 ML IV (13:43)
[2025-03-02] MEDS: SODIUM CHLORIDE 0.9% 10ML SYR (RAD ONLY) 10 ML IV (14:06)
[2025-03-02] MEDS: IOPAMIDOL-370 (76%);100ML BOTTLE 75 ML IV (14:06)
[2025-03-02 14:57] VITALS: BP 144/78; PULSE 80; RESP 18; TEMP 36.9; O2SAT 96
--- NOTE | 2025-03-02 15:02 | PC.NURSE ---
1500- this RN and BRAND ATTENDANT Neto Manjarrez at bedside for rectal exam. hemoccult stool sample collected by A Josseline ROMERO and sent to lab.
[2025-03-02 15:22] LABS: Occult Blood,Stool Positive (Negative)
[2025-03-02 16:10] VITALS: BP 132/83; PULSE 86; RESP 18; TEMP 36.8; O2SAT 100
== END 2025-03-02 16:10 | disposition home or self-care (01) ==
PROVIDERS: Nurse Practitioner Family; Emergency Provider Student in an Organized Health Care Education/Training Program; PCP Nurse Practitioner
DX: K62.89 Other specified diseases of anus and rectum (principal); R10.84 Generalized abdominal pain; K92.1 Melena
CPT/HCPCS: 74177; 80053; 81001; 82272; 83605; 83690; 85025; 85610; 96360; 99285; G0328; J7030; Q9967

== ENCOUNTER 2025-03-23 06:44 | Day surgery (SDC) | payer OTHER, SELFPAY ==
--- NOTE | 2025-03-19 07:07 | EXP.HP ---
History of Present Illness *Admission Date: 03/23/25 *History of present illness: Mr. Cleary is a 29-year-old gentleman who is here for diagnostic colonoscopy. The patient recently presented to the ED on 03/02/2025 with diffuse abdominal pain, loose stools and blood in his stool. His CAT scan showed mucosal thickening of the rectum with extensive perirectal and inguinal adenopathy. The examination is deemed medically necessary for diagnostic colonoscopy. The patient has been seen, interviewed and examined prior to the procedure by both myself and the anesthesia provider. [facility] Disclaimer: The information contained in this section may have been updated after the patient was seen, as this information can be updated by other users. Medical History Obesity Type 2 diabetes mellitus without complications Rash URI, acute CAROLINE (obstructive sleep apnea) Snoring Anxiety Surgical History History of tonsillectomy and adenoidectomy History of appendectomy Family History Other Alcoholism Bleeding disorder Cancer Coronary artery disease Diabetes Heart attack Hyperlipidemia Hypertension Stroke Thyroid disorder Social History Smoking Status: Never smoker alcohol intake: never substance use type: denies use current occupational status: employed Travel in the last 8 weeks?: None household members: family housing: house marital status: single number of children: 1 current occupation: [employer] caffeine: Yes Have you lived/traveled outside US in past 30 days?: No Contact w/someone who lives/traveled outside US past 30 days?: No Exposure to someone with infectious disease in past 14 days?: No Do you have a fever (greater than 100.4 F or 38 C)?: No Have you tested positive for COVID-19?: No Exposed to someone with COVID-19 in past 14 days?: No Do you have a sore throat?: No Do you have a cough?: No Do you have any weakness?: No Are you experiencing any nausea/vomitting?: No Do you have any diarrhea?: No Are you experiencing any unusual bleeding?: No Do you have any muscle aches/pain?: No Do you have any abdominal pain?: No Are you experiencing loss of taste or smell?: No Other Medical History Have you received the Flu Vaccine for this season: No Have you received the Pneumonia Vaccine: No Review of Systems Review of Systems Review of systems (narrative): Negative *Cardiovascular Comments: Negative *Gastrointestinal Comments: Negative *Genitourinary Comments: Negative *Musculoskeletal Comments: Negative *Neurologic Comments: Negative Meds Home Medications and Allergies Home Medications ?Medication ?Instructions ?Recorded ?Confirmed ?Type blood sugar diagnostic (Blood #150 ea 11/04/24 Rx Glucose Test strips) blood-glucose meter (Blood Glucose #1 11/04/24 Rx Monitoring kit) lancets #200 ea 11/04/24 Rx sodium,potassium,mag sulfates 17.5 See Rx Instructions PO .COMPLEX 03/09/25 03/23/25 Rx gram-3.13 gram-1.6 gram oral soln #354 mL (Suprep Bowel Prep Kit) New Prescriptions to Start Prescriptions: Allergies Allergy/AdvReac Type Severity Reaction Status Date / Time clarithromycin (From Biaxin) AdvReac Unknown Verified 03/23/25 07:03 allergy reaction Exam *Routine HEENT Exam Head: Present normocephalic Eye: Present EOMI and PERRL ENT: Present mucous membranes moist *Routine Neck Exam Neck: Present supple *Routine Respiratory Exam Respiratory: Present CTA bilaterally *Routine Cardiovascular Exam Cardiovascular: Present RRR *Routine Abdominal Exam Abdominal: Present soft and normoactive bowel sounds; Absent tenderness *Routine Rectal Exam Rectal:: deferred *Routine Genitalia Exam Genitalia:: deferred *Routine Extremities Exam Extremities: Absent cyanosis, clubbing or edema *Routine Skin Exam Skin: Present warm; Absent rash *Routine Neurological Exam Neurological: Present alert and oriented X3 Assessment and Plan *Assessment and plan (1) Acute proctitis: Status: Acute Category: Medical Code(s): K62.89 - Other specified diseases of anus and rectum (2) Rectal bleeding: Status: Acute Category: Medical Code(s): K62.5 - Hemorrhage of anus and rectum (3) Loose stools: Status: Acute Category: Medical Code(s): R19.5 - Other fecal abnormalities (4) Lower abdominal pain: Status: Acute Category: Medical Code(s): R10.30 - Lower abdominal pain, unspecified Plan A/P: 1. Rectal bleeding, loose stools and lower abdominal pain with CT evidence of proctitis is the preprocedural diagnosis. The patient will be anesthetized/sedated using MAC sedation. The patient has been seen and examined. Cardiac and lung assessment prior to the examination is stable. Proceed with planned diagnostic colonoscopy.
[2025-03-20 10:39] VITALS: BMI 30.8
--- NOTE | 2025-03-23 06:51 | P.PCN_ITS ---
[facility] Procedure Note Date: 03/23/25 Time: 08:20 Procedure Note:: Colonoscopy Procedure Report: Colonoscopy with cold biopsies Endoscopist: Shad Smith II, MD Referring physician: Jonathon Snider MD Date of Procedure: March 23, 2025 Equipment: Olympus [id number] adult colonoscope Sedation: MAC sedation Indication: Mr. Cleary is a 29-year-old gentleman who is here for diagnostic colonoscopy. The patient recently presented to the ED on 03/02/2025 with diffuse abdominal pain, loose stools and blood in his stool. His CAT scan showed mucosal thickening of the rectum with extensive perirectal and inguinal adenopathy. The patient was placed on Cipro and Flagyl for 1 week and his symptoms resolved. The patient does have some longer standing postprandial bowel urgency. Since completion of antibiotics, he reports no abdominal pain, weight loss, change in his bowel habits or rectal bleeding. The patient does state that his maternal aunt has colon cancer at the age of 56. This is the patient's first colonoscopy. The examination is deemed medically necessary for diagnostic colonoscopy. Procedure: Prior to the procedure, a history and physical exam was performed, and patient's medications and allergies were reviewed. The risks, benefits and alternatives of the sedation and procedure were discussed with the patient. All questions were answered and informed consent was obtained. The patient was brought to the procedure room. Patient identification and proposed procedure were verified by the physician and the nurse. The patient was placed in a left lateral decubitus position and the scope was passed under direct vision. Throughout the procedure, the patient's blood pressure, pulse, and oxygen saturations were monitored continuously. The colonoscopy was accomplished without difficulty. The patient tolerated the procedure well. Findings: On digital rectal examination there was normal rectal tone. There were no external hemorrhoids. There were no perianal abscesses or fistulas or fissures. The rectal vault was normal with normal prostate. The colonoscope was introduced through the anal canal to the rectum and advanced to the cecum. The ileocecal valve and appendiceal orifice were identified. The scope was advanced a short distance into the ileum which appeared grossly normal. The scope was then withdrawn into the colon. The cecum, ascending, transverse, descending, sigmoid and rectum were grossly normal. There were no mucosal abnormalities identified. Cold biopsies were taken from the rectum to rule out microscopic proctitis. Upon retroflexion within the rectum there were grade 1-2 internal hemorrhoids. The preparation was excellent throughout with [place] Preparation Score of 9. The cecal time was 12 minutes. Impression: 1. Normal colonoscopy with intubation of the terminal ileum Plan: The patient did appear clinically and radiographically to have acute proctitis presumably of infectious origin. The patient has had clinical and colonoscopic resolution. I would encourage fiber bulk on her maintenance basis. I will f ollow-up the biopsies.
[2025-03-23 07:04] VITALS: BP 141/75; PULSE 82; RESP 16; TEMP 36.4; O2SAT 96; BMI 30.8
[2025-03-23] MEDS: LACTATED RINGERS 1000ML 1,000 ML 50 ML IV (07:13)
--- NOTE | 2025-03-23 07:23 | P.PNANES_ITS ---
[facility] Disclaimer: The information contained in this section may have been updated after the patient was seen, as this information can be updated by other users. Medical History Obesity Type 2 diabetes mellitus without complications Rash URI, acute CAROLINE (obstructive sleep apnea) Snoring Anxiety Surgical History History of tonsillectomy and adenoidectomy History of appendectomy Family History Other Alcoholism Bleeding disorder Cancer Coronary artery disease Diabetes Heart attack Hyperlipidemia Hypertension Stroke Thyroid disorder Social History Smoking Status: Never smoker alcohol intake: never substance use type: denies use current occupational status: employed Travel in the last 8 weeks?: None household members: family housing: house marital status: single number of children: 1 current occupation: [employer] caffeine: Yes Have you lived/traveled outside [place] in past 30 days?: No Contact w/someone who lives/traveled outside [place] past 30 days?: No Exposure to someone with infectious disease in past 14 days?: No Do you have a fever (greater than 100.4 F or 38 C)?: No Have you tested positive for COVID-19?: No Exposed to someone with COVID-19 in past 14 days?: No Do you have a sore throat?: No Do you have a cough?: No Do you have any weakness?: No Are you experiencing any nausea/vomitting?: No Do you have any diarrhea?: No Are you experiencing any unusual bleeding?: No Do you have any muscle aches/pain?: No Do you have any abdominal pain?: No Are you experiencing loss of taste or smell?: No [facility] Anesthesia Checklist Patient Identification Patient Identification: Arm Band and Family Structural Data Admitted From: Home Planned Operative Procedure/s: Colonoscopy Consent for Planned Operative Procedure(s) Verified: Yes Verified Documents: Surgical Consent, History and Physical and Cardiac Clearance NPO Status Verified Time NPO: 00:00 Additional verifications Anesthesia Reactions: No Hx Blood Transfusions: No Blood Transfusion Reaction: No Cephalosporin Allergy: No Previous Colonoscopy: No Airway Assessment Mallampati Score:: Class II C-Spine Mobility Assessed: Yes Dentition: Good Dentition Neurological Assessment Level of Consciousness: Awake, Alert, Appropriate and Follows Commands Hx Seizures: No Numbness or tingling in extremities: No Anesthesia Plan Anesthesia Risk discussed: Yes ASA Class: II Anesthesia Type: MAC Preoperative Comments Pre-Operative Comments: Occasional Asthma. Bloody stools. Bad abdominal pain.
[2025-03-23 08:22] VITALS: BP 100/61; PULSE 84; RESP 17; TEMP 36.2; O2SAT 96
[2025-03-23 08:32] VITALS: BP 99/72; PULSE 79; RESP 18; TEMP 36.2; O2SAT 96
[2025-03-23 08:42] VITALS: BP 121/71; PULSE 78; RESP 18; TEMP 36.2; O2SAT 95
[2025-03-23 08:52] VITALS: BP 128/69; PULSE 75; RESP 19; TEMP 36.2; O2SAT 95
== END 2025-03-23 09:08 | disposition home or self-care (01) ==
PROVIDERS: PCP Family Medicine; Visit Provider Internal Medicine Gastroenterology
PROC: 0DJD8ZZ Inspection of Lower Intestinal Tract, Via Natural or Artificial Opening Endoscopic (ICD-10-PCS; CPT 45378; principal; 2025-03-23 08:00)
DX: K64.0 First degree hemorrhoids (principal); K64.1 Second degree hemorrhoids; K62.89 Other specified diseases of anus and rectum; K62.5 Hemorrhage of anus and rectum; E11.9 Type 2 diabetes mellitus without complications; Z88.1 Allergy status to other antibiotic agents
CPT/HCPCS: 45380; J2003; J2704; J7120